=== PATIENT | female | born 1990 | race Asian ===

== ENCOUNTER 2024-01-30 12:49 | Outpatient (CLI) | payer OTHER ==
--- NOTE | 2024-01-30 13:20 | Sleep Patient Instructions ---
Sleep Center Visit Summary - Patient Visit Information Reason for Visit: Initial consult for evaluation of sleep disordered breathing and other sleep issues. - Patient Instructions Instructions Attached: Sleep Study Additional Instructions: You will be completing a sleep study, either an in-lab polysomnography (PSG) or home sleep study (HST). You will follow-up in the sleep care office after the sleep study is completed to hear the results and talk about therapy, if needed. You will be called by our office staff to schedule this appointment, but you may contact us with any questions. - Clinic Information Contact: [facility] [address] [place] [address] [email or web address] T: [phone]
--- NOTE | 2024-01-30 13:23 | SLEEP CARE CONSULTATION ---
Information from patient questionnaire entered by Al Valles. I have reviewed and concur with the information entered by Al Valles. This document represents the service I personally performed and the decisions made by me, Gregoria House ARNP. History of Present Illness Service Date and Time: 01/30/2024 1249 Reason for Visit: New patient Chief Complaint: reports: Snoring, Excessive daytime sleepiness, Observed pauses in breathing, Fatigue, Frequent awakenings at night Usual bedtime: 2300 Time it takes to fall asleep: 30-60MINS Snores at night: Yes Observed to quit breathing while asleep: Yes Sleeps alone due to snoring: No Number of times waking at night: 1-2 Reasons for waking at night: reports: Gasping for air, Bathroom, Other (NIGHT SWEATS) Toss, Turn, or Twitch while sleeping: Yes Recalls having dreams: Yes Usually gets out of bed at: 0650 Feels refreshed in the morning: No Morning headache: No Sleepy or fatigued during the day: Yes Ever fallen asleep while driving: No (some drowsy driving at night) Takes day naps: Yes Dreams during day naps: No Prior sleep studies: No Additional HPI information: I had the pleasure of seeing SALOME LEMON today regarding the possibility of her having a sleep disorder. Her current complaints are snoring, excessive daytime sleepiness, observed pauses in breathing, fatigue and frequent night awakenings. She says the dentist referred her because she was getting a mouthpiece for grinding but wanted this checked first. The patient tells me that she normally goes to bed around 11 pm, and it takes her approximately 30-60 minutes to fall asleep. She has been told that she snores loudly and irregularly at night. She has been observed to stop breathing in her sleep. Her bed partner can still sleep in the same bed. She can recall waking up on the average of 1-2 times during the night. Most of the time she wakes up because of bathroom, gasping for air and night sweats. She has occasionally awakened having to gasp for air. There is a lot of tossing and turning in her sleep. Generally she can recall having dreams. She usually wakes up at 0650 and does not feel refreshed. She usually does have a morning headache 2-3 times a week that last about an hour with Tylenol. During the day she complains of feeling sleepy and fatigued. She has never fallen asleep while driving nor has any accident due to sleepiness. She usually naps for about 1-2 hours after work during the day. If she naps, upon falling asleep during the day she denies having vivid dreams. She denies having impaired concentration during the day. There is no somniloquy (sleep talking) but no somnambulism (sleep walking). - Parasomnia Symptoms Ever been unable to move upon waking from sleep: Yes (1-2 times) Walks in sleep: No Talks in sleep: Yes Ever acted out dreams in sleep: Yes (wake up talking with hand gestures) Ever felt weak in the knees when startled or emotional: Yes Bothered by creepy, crawly, restless sensations in legs: Yes (when sitting down after work) Problems with memory or concentration: Yes (both) Subjective Initial [place] Sleepiness Scale score: 17 (01/13/24) Past Medical History Past Medical History: reports: Other (bruxism) Social History The patient's occupation is a AM. Patient is Single and lives in . Have you smoked in the past 12 months: No Quit date: 2020 Alcohol use: Yes Alcohol amount and frequency: 1-2 GLASSES RARELY Caffeine use: Yes Caffeine amount and frequency: IF NEEDED ENERGY DRINK WHEN FEELING SLEEPY Family History Family history of sleep disordered breathing: Yes Family Hx Sleep Apnea: Mother: Snoring, Father: Snoring, Sleep apnea - Treated, Sibling: Snoring, Grandparent: Snoring, Sleep apnea - Treated Allergies and Home Medications Known drug allergies: No Drug allergies reviewed: Yes Home medication list reviewed: Yes (as listed) Allergy and home medication list: Allergies No Known Drug Allergies Allergy (Verified 01/28/24 10:25) Home Medications Medication Instructions Recorded Confirmed Last Taken Type Pnv No.95/Ferrous Fum/Folic AC See Rx Instructions .ROUTE .COMPLEX 01/30/24 01/30/24 Unknown History [ Caplet] Review of Systems Weight gain over past 5 years: 40 Weight loss over past 5 years: 10-15, losing now with increased exercise Cardiovascular: denies: high blood pressure Respiratory: denies: shortness of breath Gastrointestinal: denies: heartburn Neurological: reports: headaches Psychiatric: reports: anxiety, depression Ear/Nose/Throat: reports: nasal congestion. denies: tonsillectomy Endocrine: reports: sluggishness, too hot or cold, unexplained weakness Musculoskeletal: reports: muscle pain or cramping Immunologic: reports: sneezing Physical Exam Vital signs obtained and entered by: AL Mesa MA Blood Pressure: 129/82 (LEFT ARM) Cuff size: long Heart Rate: 73 O2 Saturation: 97 Height: 5 ft 2 in Weight: 200 lb Body Mass Index: 36.6 BMI Classification: Obese Neck circumference: 14.5 Nostrils: patent to airflow Mouth and throat: narrow oropharynx Soft palate: long Hard palate: normal Uvula: normal Uvula visualization: 25% Mallampati Class III Tongue: enlarged in size with teeth kinsey on lateral edges Tonsils: 2+ Neck: normal w/o lymphadenopathy or thyromegaly Heart: regular rate and rhythm Lungs: clear bilaterally Impression and Plan 1. Suspected Obstructive Sleep Apnea-Hypopnea Syndrome, as suggested by a history of loud and irregular snoring, observed cessation of breath while asleep, gasping or choking in sleep, morning headache, frequent awakening during the night, unrefreshed sleep, cognitive impairment, and excessive daytime sleepiness. Narrow oropharynx and obesity are common predisposing factors for obstructive sleep apnea-hypopnea syndrome. I recommend proceeding to polysomnography to confirm the diagnosis and to assess severity. If the patient has significant sleep disordered breathing, a manual CPAP titration study will also be performed to find the optimal treatment pressure. I informed the patient of what the sleep studies involve and after some discussion, obtained agreement to proceed. The pathophysiology of obstructive sleep apnea-hypopnea syndrome was discussed with the patient and health risks of cardiovascular and cerebrovascular disease if not treated. Risks of drowsy driving discussed in de tail and patient advised to avoid long distance driving and to machine puller at the first sign of drowsiness. Patient agreed to plan. * Schedule polysomnography * Avoid long distance driving or driving when feeling sleepy. * Avoid alcohol, sedative and muscle relaxant around bedtime. * Attempt to lose weight. * Review instructions provided by trained office staff on how to prepare for the sleep study. * Return for follow-up after sleep study completed. Counseling Topics: Weight loss health impact Visit Type: In Office Time Spent with Patient (minutes): 23 Provider Statement: I spent 100% of the Face to Face Visit with the patient with greater than 50% spent counseling the patient and coordination of care.
[2024-01-30 13:33] VITALS: BP 129/82; O2SAT 97
== END 2024-01-30 12:50 | disposition home or self-care (01) ==
LOC: SC 12:49
PROVIDERS: ATTEND Nurse Practitioner Family
DX: R06.83 Snoring (principal); R06.81 Apnea, not elsewhere classified; R51.9 Headache, unspecified; G47.8 Other sleep disorders; G47.10 Hypersomnia, unspecified; R41.89 Other symptoms and signs involving cognitive functions and awareness; E66.9 Obesity, unspecified; Z68.36 Body mass index [BMI] 36.0-36.9, adult; Z87.891 Personal history of nicotine dependence
CPT/HCPCS: 99202; 99203; 99212

== ENCOUNTER 2024-03-02 20:16 | Outpatient (CLI) | payer OTHER | END 2024-03-02 20:17 | disposition home or self-care (01) | LOC: SC 20:16 | PROVIDERS: ATTEND Nurse Practitioner Family | DX: G47.61 Periodic limb movement disorder (principal) | CPT/HCPCS: 95810 ==

== ENCOUNTER 2024-03-20 08:32 | Outpatient (CLI) | payer OTHER ==
--- NOTE | 2024-03-20 09:03 | Sleep Patient Instructions ---
Sleep Center Visit Summary - Patient Visit Information Reason for Visit: Sleep study follow-up - Patient Instructions Additional Instructions: Your sleep study today was negative for significant sleep disordered breathing. However, you did have elevated respiratory episodes when sleeping on your back. You should avoid sleeping on your back to control these respiratory episodes. You were found to have episodes of snoring. There are different ways to control snoring including weight loss, oral devices made by a dentist or surgical options through ENT specialist. You should not use oral devices that do not fit properly because they can affect your bite. You should also check insurance coverage of oral devices for snoring because they may not be cover well. You may obtain a referral to an ENT specialist through your primary provider. You also had moderate periodic leg movements of sleep that did not interrupt your sleep. You may follow up with your PCP for further evaluation of this finding as needed. Follow-up in sleep care as needed. - Clinic Information Contact: [facility] [address] [place] [address] [email or web address] T: [phone]
--- NOTE | 2024-03-20 09:07 | SLEEP CARE CONSULTATION ---
Information from patient questionnaire entered by Aaliyah Valles. I have reviewed and concur with the information entered by Aaliyah Valles. This document represents the service I personally performed and the decisions made by , Gregoria House ARNP. History of Present Illness Service Date and Time: 03/20/2024 0832 Initial [place] Sleepiness Scale score: 17 (01/13/24) Current [place] Sleepiness Scale score: 18 (03/20/24) Additional HPI information: SALOME LEMON returns for follow up and results of the recently performed polysomnography done on 03/02/2024. The patient was informed of the following findings: No significant sleep d isordered breathing with an average AHI of 4.3 and kirsten oxygen saturation of 85%. Patient does not have significant sleep disordered breathing but has elevated AHI in supine position so advised positional therapy. Methods to achieve positional management therapy were discussed; such as, positioning with pillows, wearing a T-shirt with tennis balls sewn into the back, or commercially available products. Patient has light to moderate snoring. Snoring can be reduced by weight loss. Weight loss is best achieved with diet consult. Patient instructed to contact PCP for referral. Snoring can also be treated with an oral appliance from a dentist. Advised to check insurance coverage. In addition, an ENT evaluation can be do to see if other treatment is indicated. Patient counseled not drink alc ohol less than 4 hours before bedtime as it can increase snoring and apnea. Patient was cautioned about risks of drowsy driving until sleepiness symptoms resolve. Patient denies drowsy driving. Sleep Study - Results Type of Sleep Study: Polysomnography (COMPLETED 03/22/24) Prior sleep studies: No Polysomnography/Home Sleep Study results: IMPRESSION: The quality of the study is good. The patient had reduced sleep efficiency due to sleep onset insomnia, a prolonged awakening in the middle of the night, and early breastfeeding care specialist awakening. The sleep architecture was relatively normal considering the first-night effect. Respiratory monitoring showed no significant sleep disordered breathing (AHI = 4.3) or hypoxia (kirsten oxygen saturation of 85% and only 3% to the total sleep time was spent with oxygen saturation below 90%). The few respiratory events occurred almost exclusively during supine REM sleep (supine AHI = 16.7; non-supine = 0.00). Snore was light to moderate in intensity. There was moderate periodic leg movement of sleep not associated with sleep fragmentation. Cardiac rhythm was normal sinus rhythm without significant arrhythmia. No abnormal behavior (parasomnia) observed during the night. Allergies and Home Medications Known drug allergies: No Drug allergies reviewed: Yes Home medication list reviewed: Yes (no changes) Allergy and home medication list: Allergies No Known Drug Allergies Allergy (Verified 01/30/24 09:31) Review of Systems Review of systems same as previous: Yes (NO CHANGE) Physical Exam Vital signs obtained and entered by: AALIYAH Mesa MA Blood Pressure: 116/94 (LEFT ARM) Cuff size: regular Heart Rate: 85 O2 Saturation: 98 Height: 5 ft 2 in Weight: 185 lb 12.8 oz Body Mass Index: 34.0 BMI Classification: Obese Impression and Plan 1. Periodic limb movement, moderate, that did not fragment patients sleep. Periodic limb movement of sleep (PLMS) is characterized by episodes of repetitive limb movements that occur during sleep and usually involve the lower limbs. The etiology is unknown. Patient was advised that no treatment is needed at this time. If symptoms increase, then further evaluation is indicated. 2. Snoring but no significant sleep disordered breathing. However, she had a moderately elevated residual AHI when sleeping supine and should avoid sleeping supine. This will help with reducing daytime sleepiness and improve overall sleep quality. Patient advised that often weight loss will reduce snoring as well as apnea risk. An oral appliance can also be used for snoring. This would require a dental consultation. Patient cautioned not to use other online appliances as can cause bite issues. A list of accredited dentists in area and one local dentist who makes oral appliances given. Patient is advised to check if insurance will cover. An ENT consult can also be helpful to determine if any other treatment is an option. 3. Obesity, unspecified. Currently patients BMI is 34. Obesity increases the risk of apnea, CPAP pressure requirements and overall health risks especially cardiovascular and diabetes. Thus patient is advised to lose weight. * Avoid sleeping supine * Attempt to lose weight * Avoid alcohol consumption near bedtime * The patient is cautioned about driving until sleepiness is completely resolved. * Return as needed for follow up. Counseling Topics: Sleeping position, Weight loss health impact Follow up with Sleep Care in: as needed Visit Type: In Office Time Spent with Patient (minutes): 20 Provider Statement: I spent 100% of the Face to Face Visit with the patient with greater than 50% spent counseling the patient and coordination of care.
[2024-03-20 09:11] VITALS: BP 116/94; O2SAT 98
== END 2024-03-20 08:33 | disposition home or self-care (01) ==
LOC: SC 08:32
PROVIDERS: ATTEND Nurse Practitioner Family
DX: G47.61 Periodic limb movement disorder (principal); R06.83 Snoring; E66.9 Obesity, unspecified; Z68.34 Body mass index [BMI] 34.0-34.9, adult
CPT/HCPCS: 99212; 99213